=== PATIENT | male | born 1965 | race Caucasian/White ===

== ENCOUNTER → 2021-05-09 | Outpatient (CLI) | payer OTHER | LOC: KOH-I 11:43 → EDBD 11:43 | DX: M54.2 Cervicalgia (principal); M54.9 Dorsalgia, unspecified; R05.9 Cough, unspecified; M43.8X4 Other specified deforming dorsopathies, thoracic region; M47.812 Spondylosis without myelopathy or radiculopathy, cervical region; M40.46 Postural lordosis, lumbar region; M43.16 Spondylolisthesis, lumbar region; M25.78 Osteophyte, vertebrae; M48.061 Spinal stenosis, lumbar region without neurogenic claudication; K92.89 Other specified diseases of the digestive system | CPT/HCPCS: 71046; 72040; 72070; 72100 ==

== ENCOUNTER → 2021-08-02 | Outpatient (CLI) | payer OTHER | LOC: HEART 5 07:56 → EDBD 08:30 → HEART 5 08:30 | DX: R06.02 Shortness of breath (principal); E11.9 Type 2 diabetes mellitus without complications; R07.9 Chest pain, unspecified; I34.0 Nonrheumatic mitral (valve) insufficiency | CPT/HCPCS: 78452; 93306; A9502 ==